=== PATIENT | male | born 1945 | race Two or more races ===

== ENCOUNTER 2019-10-22 11:23 | Outpatient (CLI) | payer MEDICARE, OTHER ==
[2019-10-22] MEDS ORDERED: TRIAMCINOLONE ACETONIDE SUSP 40 MG/ML 1 ML IJ ONE (12:00)
[2019-10-22] MEDS ORDERED: LIDOCAINE 1% INJ 50 ML MDV IJ ONE (12:00)
== END 2019-10-22 23:59 | disposition home or self-care (01) ==
LOC: WOU 11:23
PROVIDERS: ATTEND Podiatrist Foot & Ankle Surgery
DX: G57.82 Other specified mononeuropathies of left lower limb (principal); G57.62 Lesion of plantar nerve, left lower limb; L60.0 Ingrowing nail; M79.672 Pain in left foot; M79.671 Pain in right foot; I10 Essential (primary) hypertension; F17.200 Nicotine dependence, unspecified, uncomplicated; Z79.82 Long term (current) use of aspirin; Z79.02 Long term (current) use of antithrombotics/antiplatelets
CPT/HCPCS: 64455; J3490

== ENCOUNTER 2019-11-09 11:00 | Outpatient (CLI) | payer MEDICARE, OTHER | END 2019-11-09 23:59 | disposition home or self-care (01) | LOC: WOU 11:00 | PROVIDERS: ATTEND Podiatrist Foot & Ankle Surgery | DX: L60.0 Ingrowing nail (principal); G57.82 Other specified mononeuropathies of left lower limb; E11.9 Type 2 diabetes mellitus without complications; Z79.84 Long term (current) use of oral hypoglycemic drugs; Z79.82 Long term (current) use of aspirin; Z79.02 Long term (current) use of antithrombotics/antiplatelets | CPT/HCPCS: 11730; J3490 ==

== ENCOUNTER 2019-11-23 09:55 | Outpatient (CLI) | payer MEDICARE, OTHER | END 2019-11-23 23:59 | disposition home or self-care (01) | LOC: WOU 09:55 | PROVIDERS: ATTEND Podiatrist Foot & Ankle Surgery | DX: L84 Corns and callosities (principal); M77.42 Metatarsalgia, left foot; G57.82 Other specified mononeuropathies of left lower limb; M79.672 Pain in left foot; Z79.02 Long term (current) use of antithrombotics/antiplatelets; Z79.82 Long term (current) use of aspirin | CPT/HCPCS: G0463 ==